=== PATIENT | female | born 1995 | race Caucasian/White ===

== ENCOUNTER 2019-01-31 16:49 | Inpatient (IN) | payer OTHER ==
[~2019-01-31] VITALS: Ht 165.1 cm; Wt 85.9 kg
[2019-01-31] MEDS ORDERED: FENTANYL PF 100 MCG/2ML IV PRN (17:00)
[2019-01-31] MEDS ORDERED: TERBUTALINE 1 MG/ML, 1ML SQ PRN (17:00)
[2019-01-31] MEDS ORDERED: LACTATED RINGERS 1,000 ML IV SCH (17:00)
[2019-01-31] MEDS ORDERED: D5%-LACTATED RINGERS 1,000 ML IV SCH (17:00)
[2019-01-31] MEDS ORDERED: OXYTOCIN 30U/ 0.9% NaCL 500ML 500 ML IV ONE (17:00)
[2019-01-31] MEDS ORDERED: ONDANSETRON 2MG/ML, 2ML IVPush PRN (17:00)
[2019-01-31] MEDS ORDERED: FENTANYL PF 100 MCG/2ML IVPush PRN (17:00)
[2019-01-31] MEDS ORDERED: TERBUTALINE 1 MG/ML, 1ML IVPush PRN (17:00)
[2019-01-31] MEDS ORDERED: LIDOCAINE 1%, 20ML ONE (17:08)
[2019-01-31] MEDS ORDERED: MISOPROSTOL 200 MCG TABLET ONE (17:08)
[2019-01-31] MEDS ORDERED: OXYTOCIN 30U/ 0.9% NaCL 500ML 500 ML ONE ×2 (17:08→20:07)
[2019-01-31] MEDS ORDERED: NEWBORN KIT ONE (17:08)
[2019-01-31] MEDS ORDERED: FENTANYL PF 100 MCG/2ML ONE ×2 (17:08→18:14)
[2019-01-31] MEDS ORDERED: PLEASE ENTER HEIGHT AND WEIGHT MC SCH (17:30)
[2019-01-31 17:53] LABS: BASOPHILS # (AUTO) 0.01 x10^3/uL (0-0.1); BASOPHILS % (AUTO) 0 % (0-1); EOSINOPHILS # (AUTO) 0.04 x10^3/uL (0-0.4); EOSINOPHILS % (AUTO) 0 % (1-7); LYMPHOCYTES # (AUTO) 0.95 x10^3/uL (1-3.4); LYMPHOCYTES % (AUTO) 8 % (22-44); MD NO; MEAN CORPUSCULAR HEMOGLOBIN 26.4 pg (27.0-34.8); MEAN CORPUSCULAR HGB CONC 32.2 g/dL (32.4-35.8); MEAN CORPUSCULAR VOLUME 82.1 fL (80-100); MEAN PLATELET VOLUME 9.3 fL (7.4-10.4); MONOCYTES # (AUTO) 0.93 x10^3/uL (0.2-0.8); MONOCYTES % (AUTO) 8 % (2-9); NEUTROPHILS # (AUTO) 10.02 x10^3/uL (1.8-6.8); NEUTROPHILS % (AUTO) 84 % (42-75); PLATELET COUNT 217 x10^3/uL (130-400); RED BLOOD COUNT 4.73 x10^6/uL (3.82-5.3); RED CELL DISTRIBUTION WIDTH 18.9 % (9.6-15.2)
[2019-01-31] MEDS ORDERED: BUPIVACAINE 0.25% ONE (18:29)
[2019-01-31] MEDS ORDERED: FENTANYL/BUPIV./NS/PF 250 ML EPIDCONT ONE (18:29)
[2019-01-31] MEDS ORDERED: IBUPROFEN 600 MG TABLET ONE (20:07)
[2019-01-31] MEDS ORDERED: SIMETHICONE 80 MG CHEW TAB PO PRN (20:30)
[2019-01-31] MEDS ORDERED: METHYLERGONOVINE 0.2 MG/ML IM PRN (20:30)
[2019-01-31] MEDS ORDERED: MISOPROSTOL 200 MCG TABLET PR PRN (20:30)
[2019-01-31] MEDS ORDERED: ACETAMINOPHEN 325 MG TABLET PO PRN ×2 (20:30)
[2019-01-31] MEDS ORDERED: ONDANSETRON 2MG/ML, 2ML IV PRN (20:30)
[2019-01-31] MEDS ORDERED: OXYcodone/APAP 5/325MG TABLET PO PRN ×2 (20:30)
[2019-01-31] MEDS ORDERED: METOCLOPRAMIDE 5 MG/ML, 2ML IV PRN (20:30)
[2019-01-31] MEDS ORDERED: BISACODYL 10 MG SUPP PR PRN (20:30)
[2019-01-31] MEDS ORDERED: CARBOPROST TROMETHAMINE 250 MCG/ML, 1ML IM PRN (20:30)
[2019-01-31] MEDS ORDERED: GLYCERIN ADULT SUPP PR PRN (20:30)
[2019-01-31] MEDS ORDERED: DOCUSATE 100 MG CAPSULE PO PRN (20:30)
[2019-01-31] MEDS ORDERED: IBUPROFEN 800 MG TABLET ONE (20:33)
[2019-01-31] MEDS: OXYTOCIN 30U/ 0.9% NaCL 500ML 500 ML IV SCH ×2 (20:35→22:58)
[2019-01-31 22:00] VITALS: BP 104/67
[2019-02-01 00:15] VITALS: BP 110/75
[2019-02-01 04:20] VITALS: BP 97/63
[2019-02-01 04:37] LABS: BASOPHILS # (AUTO) 0.05 x10^3/uL (0-0.1); BASOPHILS % (AUTO) 0 % (0-1); EOSINOPHILS # (AUTO) 0.24 x10^3/uL (0-0.4); EOSINOPHILS % (AUTO) 2 % (1-7); LYMPHOCYTES # (AUTO) 1.56 x10^3/uL (1-3.4); LYMPHOCYTES % (AUTO) 11 % (22-44); MD NO; MEAN CORPUSCULAR HEMOGLOBIN 26.6 pg (27.0-34.8); MEAN CORPUSCULAR HGB CONC 32.1 g/dL (32.4-35.8); MEAN CORPUSCULAR VOLUME 82.8 fL (80-100); MEAN PLATELET VOLUME 9.4 fL (7.4-10.4); MONOCYTES # (AUTO) 1.25 x10^3/uL (0.2-0.8); MONOCYTES % (AUTO) 8 % (2-9); NEUTROPHILS # (AUTO) 11.69 x10^3/uL (1.8-6.8); NEUTROPHILS % (AUTO) 79 % (42-75); PLATELET COUNT 198 x10^3/uL (130-400); RED BLOOD COUNT 4.58 x10^6/uL (3.82-5.3)
[2019-02-01] MEDS: IBUPROFEN 800 MG TABLET PO PRN ×2 (05:00→16:32)
[2019-02-01] MEDS ORDERED: IBUP-1222 PO ×2 (08:21→08:22)
[2019-02-01] MEDS ORDERED: PRENATAL VIT/IRON/FA 1 EACH TABLET PO SCH (09:00)
[2019-02-01 10:20] VITALS: BP 128/71
[2019-02-01] MEDS: OXYTOCIN 30U/ 0.9% NaCL 500ML 500 ML IV SCH (16:04)
[2019-02-01 20:00] VITALS: BP 105/70
== END 2019-02-01 20:48 | disposition home or self-care (01) | DRG 807 ==
LOC: LDOP 16:49 → LDIP 17:18 → 2NW 22:13
PROVIDERS: ADMIT Obstetrics & Gynecology; ATTEND Obstetrics & Gynecology
PROC: 10E0XZZ Delivery of Products of Conception, External Approach (ICD-10-PCS; principal; 2019-01-31)
PROC: 3E0R3BZ Introduction of Anesthetic Agent into Spinal Canal, Percutaneous Approach (ICD-10-PCS; 2019-01-31)
PROC: 00HU33Z Insertion of Infusion Device into Spinal Canal, Percutaneous Approach (ICD-10-PCS; 2019-01-31)
PROC: 10907ZC Drainage of Amniotic Fluid, Therapeutic from Products of Conception, Via Natural or Artificial Opening (ICD-10-PCS; 2019-01-31)
DX: O99.02 Anemia complicating childbirth (principal); Z37.0 Single live birth; D64.9 Anemia, unspecified; Z3A.40 40 weeks gestation of pregnancy
CPT/HCPCS: 36415; 85025; 86850; 86900; G0378; J3010; J2590; J7120

== ENCOUNTER 2019-04-05 14:55 | Outpatient (CLI) | payer OTHER ==
[~2019-04-05 14:55] MED LIST: IBUP-1222 PO
[2019-04-05] MEDS ORDERED: NONE PER PT (15:25)
[2019-04-05 15:55] LABS: BASOPHILS # (AUTO) 0.03 x10^3/uL (0-0.1); BASOPHILS % (AUTO) 0 % (0-1); EOSINOPHILS # (AUTO) 0.15 x10^3/uL (0-0.4); EOSINOPHILS % (AUTO) 2 % (1-7); LYMPHOCYTES # (AUTO) 2.06 x10^3/uL (1-3.4); LYMPHOCYTES % (AUTO) 28 % (22-44); MD NO; MEAN CORPUSCULAR HEMOGLOBIN 27.1 pg (27.0-34.8); MEAN CORPUSCULAR VOLUME 82.1 fL (80-100); MEAN PLATELET VOLUME 8.1 fL (7.4-10.4); MONOCYTES # (AUTO) 0.59 x10^3/uL (0.2-0.8); MONOCYTES % (AUTO) 8 % (2-9); NEUTROPHILS # (AUTO) 4.49 x10^3/uL (1.8-6.8); NEUTROPHILS % (AUTO) 62 % (42-75); PLATELET COUNT 293 x10^3/uL (130-400); RED BLOOD COUNT 4.93 x10^6/uL (3.82-5.3); RED CELL DISTRIBUTION WIDTH 13.5 % (9.6-15.2)
[2019-04-05 15:59] LABS: MICROSCOPIC AUTO
[2019-04-05 16:05] LABS: CULTURE INDICATED? NO
[2019-04-05 16:06] LABS: ALBUMIN 3.9 g/dL (3.4-5.0); ANION GAP 4 mmol/L (5-15); CALCIUM 8.9 mg/dL (8.5-10.1); CHLORIDE 108 mmol/L (98-107)
[2019-04-05 16:10] LABS: ALANINE AMINOTRANSFERASE 43 U/L (12-78); ALKALINE PHOSPHATASE 135 U/L (45-117); BILIRUBIN,TOTAL 0.3 mg/dL (0.2-1.0); CREATININE 0.75 mg/dL (0.55-1.02)
== END 2019-04-05 23:59 | disposition home or self-care (01) ==
LOC: STAR 14:55
PROVIDERS: ATTEND Obstetrics & Gynecology
DX: Z01.818 Encounter for other preprocedural examination (principal)
CPT/HCPCS: 36415; 80053; 81001; 85025

== ENCOUNTER 2019-04-15 12:29 | Day surgery (SDC) | payer OTHER ==
[~2019-04-15] VITALS: Ht 165.1 cm; Wt 80.0 kg
[~2019-04-15 12:29] MED LIST changes: +BUPIVACAINE/PF 0.25% ONE; +EPINEPHRINE 1 MG/ML, 1ML ONE; +NONE PER PT
[2019-04-15] MEDS ORDERED: LACTATED RINGERS 1,000 ML IV SCH (12:51)
[2019-04-15] MEDS ORDERED: GABAPENTIN 300 MG CAPSULE PO STA (12:51)
[2019-04-15] MEDS ORDERED: ACETAMINOPHEN 500 MG TABLET PO STA (12:51)
[2019-04-15 13:00] VITALS: BP 116/78
[2019-04-15] MEDS ORDERED: MIDAZOLAM 1 MG/ML, 2ML ONE (14:03)
[2019-04-15] MEDS ORDERED: FENTANYL PF 250 MCG/5ML ONE (14:03)
[2019-04-15] MEDS ORDERED: SUCCINYLCHOLINE 20 MG/ML, 10ML ONE (14:04)
[2019-04-15] MEDS ORDERED: NEOSTIGMINE 1 MG/ML, 10ML ONE (14:04)
[2019-04-15] MEDS ORDERED: ROCURONIUM 10MG/ML,5ML ONE (14:04)
[2019-04-15] MEDS ORDERED: GLYCOPYRROLATE 0.2MG/1ML, 5ML ONE (14:04)
[2019-04-15] MEDS ORDERED: DEXAMETHASONE 4 MG/ML, 1ML ONE (14:04)
[2019-04-15] MEDS ORDERED: CEFAZOLIN 1,000 MG ONE (14:04)
[2019-04-15] MEDS ORDERED: ONDANSETRON 2MG/ML, 2ML ONE ×2 (14:04→15:40)
[2019-04-15] MEDS ORDERED: PROPOFOL 10 MG/ML, 20ML ONE (14:04)
[2019-04-15] MEDS ORDERED: LIDOCAINE-MPF 2% ,5ML ONE (14:32)
[2019-04-15] MEDS ORDERED: KETOROLAC 30 MG/1 ML ONE (14:32)
[2019-04-15] MEDS ORDERED: OXYcodone 5 MG/5 ML ORAL.SOL UDC PO PRN (15:00)
[2019-04-15] MEDS ORDERED: HYDROmorphone 2 MG/ML, 1ML IVPush PRN (15:00)
[2019-04-15] MEDS ORDERED: MEPERIDINE/PF 25MG/ML,1ML IVPush PRN (15:00)
[2019-04-15] MEDS ORDERED: FENTANYL PF 100 MCG/2ML IV PRN (15:00)
[2019-04-15] MEDS ORDERED: PROMETHAZINE 25 MG/ML, 1ML IV PRN (15:00)
[2019-04-15] MEDS ORDERED: ONDANSETRON 2MG/ML, 2ML IV PRN (15:00)
[2019-04-15] MEDS ORDERED: LABETALOL 5MG/ML, 20ML IV PRN (15:00)
[2019-04-15] MEDS ORDERED: hydrALAzine 20 MG/ML, 1ML IV PRN (15:00)
[2019-04-15] MEDS ORDERED: EPHEDRINE 50 MG/ML, 1ML IVPush PRN (15:00)
[2019-04-15] MEDS ORDERED: OXYcodone 5 MG/5 ML ORAL.SOL UDC ONE (15:40)
[2019-04-15] MEDS ORDERED: FENTANYL PF 100 MCG/2ML ONE (15:40)
== END 2019-04-15 17:55 | disposition home or self-care (01) ==
LOC: OR 12:29
PROVIDERS: ATTEND Obstetrics & Gynecology
DX: Z30.2 Encounter for sterilization (principal); F12.90 Cannabis use, unspecified, uncomplicated; Z98.890 Other specified postprocedural states; Z88.0 Allergy status to penicillin; Z87.891 Personal history of nicotine dependence
CPT/HCPCS: 36415; 58661; 84702; 86850; 86900; 88302; J0171; J0330; J0690; J1100; J1885; J2250; J2405; J2704; J2710; J3010; J3490; J7120